=== PATIENT | male | born 1960 | race Caucasian/White ===

== ENCOUNTER → 2016-04-09 | Outpatient (CLI) | payer BC, OTHER | LOC: COL.RAD 10:25 | DX: M50.022 Cervical disc disorder at C5-C6 level with myelopathy (principal); M50.31 Other cervical disc degeneration, high cervical region ==

== ENCOUNTER → 2016-05-28 | Outpatient (CLI) | payer BC, OTHER | LOC: COL.RAD 07:22 | DX: H93.8X2 Other specified disorders of left ear (principal) ==

== ENCOUNTER 2018-12-26 07:09 | Day surgery (SDC) | payer BC, OTHER ==
[~2018-12-26] VITALS: Ht 182.9 cm; Wt 89.1 kg
[2018-12-26] MEDS ORDERED: LIPITOR 40MG TA40 MG PO (07:23)
[2018-12-26 07:46] VITALS: BP 128/71; PULSE 75; TEMP 97.8
[2018-12-26 08:40] VITALS: BP 96/62; PULSE 66; TEMP 97.6
--- NOTE | 2018-12-26 08:40 | NUR ---
Pt returned to [facility]. Assisted with ambulation from cart to recliner. Pt drowsy. VSS-see flowsheet. , Vanessa, present in room. Pt requested a muffin and coffee. Denies needs or concerns at this time. Call light in reach.
[2018-12-26 08:55] VITALS: BP 100/60; PULSE 61
[2018-12-26 09:10] VITALS: BP 101/65; PULSE 67
--- NOTE | 2018-12-26 09:50 | NUR ---
Pt tolerated a muffin, pudding and coffee. VS remain stable. Dr Gill in to talk with pt and post procedure. IV removed and pressure dressing applied to site. Discharge teaching completed, pt and verbalized understanding. Taken via wheelchair to private vehicle for dc home with driving.
== END 2018-12-26 09:50 | disposition home or self-care (01) ==
LOC: SDCO 07:09
DX: Z12.11 Encounter for screening for malignant neoplasm of colon (principal); D12.3 Benign neoplasm of transverse colon; D12.5 Benign neoplasm of sigmoid colon; K57.30 Diverticulosis of large intestine without perforation or abscess without bleeding; E78.00 Pure hypercholesterolemia, unspecified; Z86.010 Personal history of colon polyps
CPT/HCPCS: J2250; J3010; J7030

== ENCOUNTER → 2020-02-08 | Outpatient (CLI) | payer BC ==
[~2020-02-08] MED LIST: LIPITOR 40MG TA40 MG PO
== END ==
LOC: COL.RAD 07:49
DX: H53.483 Generalized contraction of visual field, bilateral (principal); H47.212 Primary optic atrophy, left eye; H47.012 Ischemic optic neuropathy, left eye; J32.4 Chronic pansinusitis; R90.82 White matter disease, unspecified
CPT/HCPCS: A9585

== ENCOUNTER 2021-07-26 19:53 | Emergency (ER) | payer BC ==
[~2021-07-26] VITALS: Ht 182.9 cm; Wt 90.9 kg
[2021-07-26 20:00] VITALS: TEMP 98
[2021-07-26] MEDS ORDERED: CEPHALEXIN500 M1 PO (20:23)
[2021-07-26 20:42] VITALS: BP 117/62; PULSE 72
== END 2021-07-26 20:42 | disposition home or self-care (01) ==
LOC: COL.ER 19:53
DX: I80.292 Phlebitis and thrombophlebitis of other deep vessels of left lower extremity (principal); F17.290 Nicotine dependence, other tobacco product, uncomplicated

== ENCOUNTER 2023-11-15 11:51 | Inpatient (IN) | payer MEDICARE, BC ==
[~2023-11-15] VITALS: Ht 182.9 cm; Wt 85.8 kg
[~2023-11-15 11:51] MED LIST changes: +CEPHALEXIN500 M1 PO
[2023-11-15] MEDS ORDERED: NS 1,000 ML IV ONE (13:30)
[2023-11-15] MEDS ORDERED: SOOLANTRA TOP (13:54)
[2023-11-15 13:55] LABS: BASO # 0.1 K/mm3 (0.0-0.2); BASO % 0.6 % (0.0-2.0); EOS # 0.2 K/mm3 (0.0-0.7); EOS % 2.7 % (0.0-4.0); GRAN # 5.5 K/mm3 (1.4-6.5); GRAN % 62.1 % (42.2-75.2); HEMATOCRIT 41.6 % (42.0-52.0); HEMOGLOBIN 14.9 g/dl (13.5-18.0); LYMPH # 1.9 K/mm3 (1.2-3.4); LYMPH % 20.9 % (20.0-51.0); MEAN CELL VOLUME 101 fl (80.0-100.0); MEAN CORPUSCULAR HEMOGLOBIN 36 pg (27-31); MEAN CORPUSCULAR HGB CONC 36 g/dl (33.0-37.0); MEAN PLATELET VOLUME 9.1 fl (7.4-10.4); MONO # 1.2 K/mm3 (0.1-0.6); MONO % 13.4 % (1.7-9.3); PLATELET COUNT 270 K/mm3 (130-400); RED BLOOD COUNT 4.14 M/mm3 (4.20-5.60); REDCELL DISTRIBUTION WIDTH-CV 14.1 % (11.5-14.5)
[2023-11-15 13:57] LABS: PROTHROMBIN TIME 11.3 SECONDS (9.7-12.8)
[2023-11-15 14:10] LABS: ALBUMIN 3.8 g/dL (3.4-4.8); BILIRUBIN,TOTAL 0.5 mg/dL (0.2-1.2); CALCIUM 9.8 mg/dL (8.4-10.2); CREATININE, serum 0.79 mg/dL (0.72-1.25); POTASSIUM 4.7 mEq/L (3.5-4.5); TOTAL PROTEIN 7.1 g/dl (6.2-8.1)
[2023-11-15 14:15] LABS: TROPONIN-I 0.013 ng/mL (0.00-0.033)
[2023-11-15] MEDS ORDERED: NS 100 ML IV SCH (14:23)
[2023-11-15] MEDS ORDERED: Iohexol 300 - 100 ML VIAL IV ONE (14:23)
[2023-11-15 17:00] VITALS: BP_SYST 149
[2023-11-15 17:44] VITALS: BP 149/73; PULSE 67; TEMP 98.5
--- NOTE | 2023-11-15 18:02 | NUR ---
Patient arrived to the medical unit room 352. Alert and oriented x 4, VSS. States some pain in his left lower ribs. Echymosis noted. Assessment intake completed.
[2023-11-15] MEDS ORDERED: Acetaminophen 325 MG TAB PO PRN (18:15)
[2023-11-15] MEDS ORDERED: Docusate Sodium 100 MG CAP PO PRN (18:15)
[2023-11-15] MEDS ORDERED: Polyethylene Glycol 3350 17 GM PDS PO PRN (18:15)
[2023-11-15] MEDS ORDERED: Ondansetron 4 MG/2 ML VIAL IV PRN (18:15)
[2023-11-15] MEDS ORDERED: Mag/Al Hydrox/Simeth Susp 30 ML CUP PO PRN (18:30)
[2023-11-15] MEDS ORDERED: LORazepam 1 MG TAB PO PRN (18:30)
[2023-11-15] MEDS ORDERED: LORazepam 2 MG/ML 1 ML VIAL IV PRN (18:30)
[2023-11-15 19:12] VITALS: BP 151/68; PULSE 73; TEMP 98.4
[2023-11-15 20:00] VITALS: BP_SYST 151
--- NOTE | 2023-11-15 20:00 | NUR ---
PT AWAKE AND RESTING IN BED, EATING DINNER. GAURAV () AT BEDSIDE. SCHEDULED MEDS GIVEN PER eMAR. PRN TYLENOL GIVEN FOR 7 HEADACHE. RIGHT AC IV SITE WRAPPED IN AC WRAP TO PREVENT BENDING OF ELBOW. ABRASION ON LEFT WRIST COVERED WITH GAUZE/TAPE. PT AND INFORMED OF PLAN. NEURO CHECKS Q2 HR AND STROKE CHECKS Q4HR. UPDATED INTERVENTION TO REFLECT ORDER. NO FURTHER CONCERNS. BED ALARM ON AND CALL LIGHT WITHIN REACH.
[2023-11-15] MEDS ORDERED: Thiamine 100 MG TAB PO SCH (21:00)
[2023-11-15] MEDS ORDERED: Atorvastatin 40 MG TAB PO SCH (21:00)
[2023-11-15 22:00] VITALS: BP 124/66; PULSE 70; TEMP 98.6
[2023-11-15 23:42] VITALS: BP 136/75; PULSE 75; TEMP 98.1
[2023-11-16] VITALS (11 sets, daily range): BP systolic 101–136; BP diastolic 59–70; PULSE 66–74; TEMP 97.7–98.6
[2023-11-16 06:35] LABS: BASO # 0.1 K/mm3 (0.0-0.2); BASO % 0.8 % (0.0-2.0); EOS # 0.3 K/mm3 (0.0-0.7); EOS % 4.5 % (0.0-4.0); GRAN # 3.9 K/mm3 (1.4-6.5); GRAN % 54.4 % (42.2-75.2); HEMATOCRIT 38.4 % (42.0-52.0); HEMOGLOBIN 13.6 g/dl (13.5-18.0); LYMPH # 1.9 K/mm3 (1.2-3.4); LYMPH % 26.9 % (20.0-51.0); MEAN CELL VOLUME 98 fl (80.0-100.0); MEAN CORPUSCULAR HEMOGLOBIN 35 pg (27-31); MEAN CORPUSCULAR HGB CONC 35 g/dl (33.0-37.0); MEAN PLATELET VOLUME 9.4 fl (7.4-10.4); MONO # 0.9 K/mm3 (0.1-0.6); MONO % 13.1 % (1.7-9.3); PLATELET COUNT 256 K/mm3 (130-400); RED BLOOD COUNT 3.92 M/mm3 (4.20-5.60); REDCELL DISTRIBUTION WIDTH-CV 13.9 % (11.5-14.5)
[2023-11-16 06:36] LABS: CHOLESTEROL RISK RATIO 3.4
[2023-11-16 06:37] LABS: CALCIUM 9.1 mg/dL (8.4-10.2); CREATININE, serum 0.74 mg/dL (0.72-1.25); POTASSIUM 4.3 mEq/L (3.5-4.5)
[2023-11-16 07:00] LABS: THYROID STIMULATING HORMONE 2.842 uIU/mL (0.350-4.940)
[2023-11-16] MEDS ORDERED: Multivitamin TAB PO SCH (08:00)
[2023-11-16] MEDS ORDERED: Folic Acid 1 MG TAB PO SCH (09:00)
[2023-11-16] MEDS ORDERED: Clopidogrel 75 MG TAB PO SCH (10:00)
--- NOTE | 2023-11-16 12:16 | NUR ---
Data: Patient and accepted spiritual care visit offered during Proofing Machine Operator rounds. is [employer]. Patient attends [employer] with . Their [facility]ain is [facility]. They expect to discharge today. Assessment: Both desired prayer. Plan of Care: Proofing Machine Operator provided supportive listening and prayer. Both thanked Proofing Machine Operator for prayer. Chaplains will remain available as needed/requested while Patient is admitted to this hospital.
[2023-11-16] MEDS ORDERED: ASPIRIN 81M81 MG/TA2 PO (15:14)
[2023-11-16] MEDS ORDERED: PLAVIX 75MG TAB75 MG PO (15:14)
--- NOTE | 2023-11-16 15:19 | NUR ---
core worker met with patient and at bedside to discuss discharge planning. Patient stated that he lives in [place] with his , Vanessa (p# [phone]). Patient also confirmed that Vanessa is his DPOA. Patient states that his PCP is Dr. Bergeron and that the pharmacy that he uses is [facility]. Patient denies using any DMEs at home, he states that he is independent in ADLs and transportation, and that he has no concerns regarding his discharge. Plan: D/C to home.
--- NOTE | 2023-11-16 17:01 | NUR ---
patient given discharge instructions and educatoin. patient iv and tele removed. patients questions answered.
--- NOTE | 2023-11-16 17:02 | NUR ---
patient taken to er entrance via wheelchair by pct where he left in stable condoition with his
== END 2023-11-16 17:02 | disposition home or self-care (01) | DRG 66 ==
LOC: COL.ER 11:51 → MEDICAL 16:21
PROVIDERS: Physician Assistant; ADMIT Hospitalist
DX: I63.9 Cerebral infarction, unspecified (principal); E78.5 Hyperlipidemia, unspecified; F10.90 Alcohol use, unspecified, uncomplicated; F17.200 Nicotine dependence, unspecified, uncomplicated
CPT/HCPCS: J7030; Q3014; Q9967